=== PATIENT | female | born 1990 | race Hispanic/Latino ===

== ENCOUNTER 2018-04-01 18:54 | Emergency (ER) | payer BC, OTHER | END 2018-04-01 19:29 | disposition home or self-care (01) | LOC: EDH 18:54 | DX: H60.91 Unspecified otitis externa, right ear (principal); Z88.1 Allergy status to other antibiotic agents; Z87.891 Personal history of nicotine dependence | CPT/HCPCS: 99281 ==

== ENCOUNTER 2019-07-02 08:36 | Emergency (ER) | payer OTHER ==
[2019-07-02] MEDS ORDERED: ONDANSETRON HCL 4 MG/2 ML VIAL ONE (09:19)
[2019-07-02] MEDS ORDERED: KETOROLAC TROMETHAMINE 30MG/ML ONE (09:19)
[2019-07-02] MEDS ORDERED: SODIUM CHLORIDE 0.9% 1000ML 1,000 ML IV ONE (09:20)
[2019-07-02 09:37] LABS: BASOPHILS % (AUTO) 0.4 % (0.0-5.0); EOSINOPHILS % (AUTO) 0.5 % (0.0-8.0); LYMPHOCYTES % (AUTO) 11.3 % (21.0-51.0); MEAN CORPUSCULAR HGB CONC 34.8 g/dL (32.0-36.0); MEAN CORPUSCULAR VOLUME 86.3 fL (79-99); MONOCYTES % (AUTO) 6.7 % (3.0-13.0); NEUTROPHILS % (AUTO) 81.1 % (40.0-77.0); PLATELET COUNT (AUTO) 312 K/uL (130-400); RED BLOOD CELL COUNT(AUTO) 4.99 MIL/uL (4.00-5.50); RED CELL DISTRIBUTION WIDTH 13.3 % (11.0-15.5); WHITE BLOOD COUNT (AUTO) 9.5 K/uL (4.8-10.8)
[2019-07-02 09:45] LABS: CREATININE 0.8 mg/dL (0.5-1.5); POTASSIUM 3.8 mmol/L (3.5-5.1)
[2019-07-02 09:50] LABS: ALBUMIN 3.9 g/dL (3.5-5.0); BILIRUBIN,DIRECT 0.1 mg/dL (0.0-0.3); BILIRUBIN,TOTAL 0.5 mg/dL (0.2-1.0); TOTAL PROTEIN, SERUM 8.5 g/dL (6.0-8.3)
[2019-07-02 10:28] LABS: APPEARANCE,URINE Cloudy (CLEAR); BILIRUBIN,URINE Negative (NEGATIVE); COLOR,URINE Yellow (YELLOW); GLUCOSE, URINE (UA) Negative (NEGATIVE); KETONES,URINE Negative (NEGATIVE); LEUKOCYTE ESTERASE ,URINE Small (NEGATIVE); NITRATE,URINE Negative (NEGATIVE); OCCULT BLOOD,URINE Negative (NEGATIVE); PROTEIN,URINE Negative (NEGATIVE); UROBILINOGEN,URINE 0.2 mg/dL (0.2-1.0)
[2019-07-02 10:29] LABS: HCG,QUAL RESULT NEGATIVE (NEGATIVE)
[2019-07-02 10:31] LABS: BACTERIA,URINE Rare /HPF (None Seen); RBC,URINE 0-1 /HPF (0-1); SQUAMOUS EPITHELIAL CELL,UR Few /HPF (0-2); WBC,URINE 0-1 /HPF (0-1)
[2019-07-02 10:36] LABS: AMPHET/METH SCREEN,URINE NEGATIVE (NEGATIVE); BARBITURATE SCREEN, URINE NEGATIVE (NEGATIVE); BENZODIAZEPINES SCREEN,URINE NEGATIVE (NEGATIVE); CANNABINOID SCREEN,URINE NEGATIVE (NEGATIVE); COCAINE SCREEN,URINE NEGATIVE (NEGATIVE); OPIATE SCREEN,URINE NEGATIVE (NEGATIVE); PHENCYCLIDINE SCREEN,URINE NEGATIVE (NEGATIVE)
== END 2019-07-02 11:56 | disposition home or self-care (01) ==
LOC: EDH 08:36
DX: K52.9 Noninfective gastroenteritis and colitis, unspecified (principal); Z88.8 Allergy status to other drugs, medicaments and biological substances; Z87.891 Personal history of nicotine dependence
CPT/HCPCS: 36415; 74021; 80048; 80076; 80305; 81001; 81025; 83690; 85025; 96361; 96374; 96375; 99285; J1885; J2405; J7030

== ENCOUNTER 2019-08-30 16:50 | Emergency (ER) | payer OTHER ==
[2019-08-30 17:12] LABS: APPEARANCE,URINE Cloudy (CLEAR); BILIRUBIN,URINE Negative (NEGATIVE); COLOR,URINE Yellow (YELLOW); GLUCOSE, URINE (UA) Negative (NEGATIVE); KETONES,URINE Negative (NEGATIVE); LEUKOCYTE ESTERASE ,URINE Negative (NEGATIVE); NITRATE,URINE Negative (NEGATIVE); OCCULT BLOOD,URINE Negative (NEGATIVE); PROTEIN,URINE Negative (NEGATIVE); UROBILINOGEN,URINE 0.2 mg/dL (0.2-1.0)
[2019-08-30 17:21] LABS: BACTERIA,URINE Rare /HPF (None Seen); HCG,QUAL RESULT NEGATIVE (NEGATIVE); RBC,URINE 0-1 /HPF (0-1); WBC,URINE 0-1 /HPF (0-1)
[2019-08-30 17:22] LABS: SQUAMOUS EPITHELIAL CELL,UR Moderate /HPF (0-2)
[2019-08-30 17:33] LABS: CARBON DIOXIDE 24 mmol/L (21-32); CHLORIDE 104 mmol/L (101-111); CREATININE 0.8 mg/dL (0.5-1.5); GLOMERULAR FILTR. RATE CALC 89 mL/min (>60); GLUCOSE,RANDOM 104 mg/dL (70-105); POTASSIUM 4.2 mmol/L (3.5-5.1); SODIUM SERUM 139 mmol/L (136-145); UREA NITROGEN, BLOOD 13 mg/dL (7-18)
[2019-08-30 17:38] LABS: ALANINE AMINOTRANSFERASE 63 U/L (12-78); ALBUMIN 3.5 g/dL (3.5-5.0); ALCOHOL, BLOOD < 3 mg/dL (0-10); ASPARTATE AMINOTRANSFERASE 28 U/L (10-37); BILIRUBIN,TOTAL 0.2 mg/dL (0.2-1.0); LIPASE 130 U/L (114-286); TOTAL PROTEIN, SERUM 8.2 g/dL (6.0-8.3)
[2019-08-30 17:49] LABS: AMPHET/METH SCREEN,URINE NEGATIVE (NEGATIVE); BARBITURATE SCREEN, URINE NEGATIVE (NEGATIVE); BENZODIAZEPINES SCREEN,URINE NEGATIVE (NEGATIVE); CANNABINOID SCREEN,URINE NEGATIVE (NEGATIVE); COCAINE SCREEN,URINE NEGATIVE (NEGATIVE); OPIATE SCREEN,URINE NEGATIVE (NEGATIVE); PHENCYCLIDINE SCREEN,URINE NEGATIVE (NEGATIVE)
[2019-08-30 18:40] LABS: BASOPHILS % (AUTO) 1.2 % (0.0-5.0); EOSINOPHILS % (AUTO) 2.1 % (0.0-8.0); HEMATOCRIT 42.6 % (36-48); LYMPHOCYTES % (AUTO) 31.5 % (21.0-51.0); MEAN CORPUSCULAR HEMOGLOBIN 29.3 pg (27.0-33.0); MEAN CORPUSCULAR HGB CONC 33.7 g/dL (32.0-36.0); MONOCYTES % (AUTO) 7.7 % (3.0-13.0); NEUTROPHILS % (AUTO) 57.5 % (40.0-77.0); PLATELET COUNT (AUTO) 349 K/uL (130-400); RED BLOOD CELL COUNT(AUTO) 4.89 MIL/uL (4.00-5.50); RED CELL DISTRIBUTION WIDTH 13.6 % (11.0-15.5); WHITE BLOOD COUNT (AUTO) 9.7 K/uL (4.8-10.8)
[2019-08-30] MEDS ORDERED: KETOROLAC TROMETHAMINE 30MG/ML ONE (19:01)
== END 2019-08-30 19:19 | disposition home or self-care (01) ==
LOC: EDH 16:50
DX: S39.012A Strain of muscle, fascia and tendon of lower back, initial encounter (principal); Z90.49 Acquired absence of other specified parts of digestive tract; Z72.0 Tobacco use; Z88.8 Allergy status to other drugs, medicaments and biological substances; X58.XXXA Exposure to other specified factors, initial encounter; Y93.89 Activity, other specified; Y92.89 Other specified places as the place of occurrence of the external cause; Y99.8 Other external cause status
CPT/HCPCS: 36415; 74176; 80053; 80305; 81001; 81025; 83690; 85025; 96374; 99285; G0480; J1885

== ENCOUNTER 2020-02-13 23:00 | Emergency (ER) | payer OTHER ==
[2020-02-13] MEDS ORDERED: ONDANSETRON ODT 4 MG TAB ONE (23:25)
[2020-02-13 23:39] LABS: BILIRUBIN,URINE Negative (NEGATIVE); COLOR,URINE Yellow (YELLOW); GLUCOSE, URINE (UA) Negative (NEGATIVE); KETONES,URINE Negative (NEGATIVE); LEUKOCYTE ESTERASE ,URINE Small (NEGATIVE); NITRATE,URINE Negative (NEGATIVE); OCCULT BLOOD,URINE Negative (NEGATIVE); PROTEIN,URINE Negative (NEGATIVE); UROBILINOGEN,URINE 0.2 mg/dL (0.2-1.0)
[2020-02-13 23:40] LABS: APPEARANCE,URINE SLIGHTLY CLOUDY (CLEAR)
[2020-02-13 23:42] LABS: HCG,QUAL RESULT NEGATIVE (NEGATIVE)
[2020-02-13 23:50] LABS: BACTERIA,URINE Few /HPF (None Seen)
[2020-02-13 23:51] LABS: MUCUS,URINE Few LPF (None Seen)
[2020-02-13] MEDS ORDERED: FAMOTIDINE 20MG TAB 20 MG TAB ONE (23:51)
== END 2020-02-14 00:26 | disposition home or self-care (01) ==
LOC: EDH 23:00
DX: R10.13 Epigastric pain (principal); R11.0 Nausea; Z88.8 Allergy status to other drugs, medicaments and biological substances; Z90.49 Acquired absence of other specified parts of digestive tract
CPT/HCPCS: 81001; 81025; 87088

== ENCOUNTER 2020-11-22 16:07 | Emergency (ER) | payer OTHER ==
[2020-11-22 16:33] LABS: APPEARANCE,URINE Turbid (CLEAR); BILIRUBIN,URINE Negative (NEGATIVE); COLOR,URINE Yellow (YELLOW); GLUCOSE, URINE (UA) Negative (NEGATIVE); KETONES,URINE Trace mg/dL (NEGATIVE); LEUKOCYTE ESTERASE ,URINE Large (NEGATIVE); NITRATE,URINE Negative (NEGATIVE); OCCULT BLOOD,URINE Large (NEGATIVE); PH,URINE 5.5 (5.0-8.0); PROTEIN,URINE POS 2+ mg/dL (NEGATIVE); UROBILINOGEN,URINE 0.2 mg/dL (0.2-1.0)
[2020-11-22] MEDS ORDERED: CEFTRIAXONE SODIUM 1 GM ONE (16:55)
[2020-11-22] MEDS ORDERED: LIDOCAINE HCL-MPF 1% 2ML VIAL ONE (16:55)
[2020-11-22 16:58] LABS: BACTERIA,URINE Moderate /HPF (None Seen); MUCUS,URINE Few LPF (None Seen); SQUAMOUS EPITHELIAL CELL,UR Few /HPF (0-2); WBC,URINE 26-50 /HPF (0-1)
[2020-11-22] MEDS ORDERED: PHENAZOPYRIDINE HCL 200 MG TABLET ONE (17:01)
== END 2020-11-22 19:09 | disposition home or self-care (01) ==
LOC: EDH 16:07
DX: N39.0 Urinary tract infection, site not specified (principal); Z90.49 Acquired absence of other specified parts of digestive tract; Z87.891 Personal history of nicotine dependence; Z79.899 Other long term (current) drug therapy
CPT/HCPCS: 81001; 82948; 87077; 87088; 87186; 96372; 99283; J0696; J3490

== ENCOUNTER 2022-02-14 11:01 | Emergency (ER) | payer OTHER ==
[~2022-02-14] VITALS: Ht 162.6 cm; Wt 108.9 kg
[2022-02-14] MEDS ORDERED: ONDANSETRON 4MG INJ IVP ONE (11:30)
[2022-02-14] MEDS ORDERED: PANTOPRAZOLE 40 MG/VIAL IVP ONE (11:30)
[2022-02-14 12:01] LABS: BASOPHILS % (AUTO) 0.2 % (0.0-5.0); EOSINOPHILS % (AUTO) 0.2 % (0.0-8.0); HEMATOCRIT 45.1 % (36-48); LYMPHOCYTES % (AUTO) 20.5 % (21.0-51.0); MEAN CORPUSCULAR HEMOGLOBIN 28.8 pg (27.0-33.0); MEAN CORPUSCULAR HGB CONC 33.5 g/dL (32.0-36.0); MEAN CORPUSCULAR VOLUME 86.1 fL (79-99); MONOCYTES % (AUTO) 7.7 % (3.0-13.0); NEUTROPHILS % (AUTO) 71.1 % (40.0-77.0); PLATELET COUNT (AUTO) 304 K/uL (130-400); RED BLOOD CELL COUNT(AUTO) 5.24 MIL/uL (4.00-5.50); RED CELL DISTRIBUTION WIDTH 13.3 % (11.0-15.5); WHITE BLOOD COUNT (AUTO) 5.9 K/uL (4.8-10.8)
[2022-02-14 12:13] LABS: CREATININE 0.7 mg/dL (0.5-1.5); POTASSIUM 3.4 mmol/L (3.5-5.1)
[2022-02-14 12:18] LABS: ALBUMIN 3.8 g/dL (3.5-5.0); BILIRUBIN,TOTAL 0.4 mg/dL (0.2-1.0); TOTAL PROTEIN, SERUM 8.4 g/dL (6.0-8.3)
[2022-02-14 12:22] LABS: INFLUENZA TYPE A NEGATIVE FOR TYPE A (NEG); INFLUENZA TYPE B NEGATIVE FOR TYPE B (NEG)
[2022-02-14] MEDS ORDERED: 0.9%NACL 1000ML 1,000 ML IV ONE (13:00)
[2022-02-14] MEDS ORDERED: POTASSIUM BICARB/CIT AC 25 MEQ TABLET.EFF PO ONE (13:00)
[2022-02-14 13:22] VITALS: BP 112/78
[2022-02-14 13:27] LABS: APPEARANCE,URINE Turbid (CLEAR); BILIRUBIN,URINE Negative (NEGATIVE); COLOR,URINE Dark Yellow (YELLOW); GLUCOSE, URINE (UA) Negative (NEGATIVE); KETONES,URINE 40 mg/dL (NEGATIVE); LEUKOCYTE ESTERASE ,URINE Small (NEGATIVE); NITRATE,URINE Negative (NEGATIVE); OCCULT BLOOD,URINE Negative (NEGATIVE); PROTEIN,URINE Trace mg/dL (NEGATIVE)
[2022-02-14 13:30] LABS: HCG,QUAL RESULT NEGATIVE (NEGATIVE)
[2022-02-14 13:36] LABS: AMPHET/METH SCREEN,URINE NEGATIVE (NEGATIVE); BARBITURATE SCREEN, URINE NEGATIVE (NEGATIVE); BENZODIAZEPINES SCREEN,URINE NEGATIVE (NEGATIVE); CANNABINOID SCREEN,URINE POSITIVE (NEGATIVE); COCAINE SCREEN,URINE NEGATIVE (NEGATIVE); OPIATE SCREEN,URINE NEGATIVE (NEGATIVE); PHENCYCLIDINE SCREEN,URINE NEGATIVE (NEGATIVE)
[2022-02-14 13:39] LABS: BACTERIA,URINE Few /HPF (None Seen); MUCUS,URINE Moderate LPF (None Seen); RBC,URINE None Seen /HPF (0-1)
[2022-02-14] MEDS ORDERED: FAMO20TA8 PO (13:52)
== END 2022-02-14 14:14 | disposition home or self-care (01) ==
LOC: EDH 11:01
DX: A08.4 Viral intestinal infection, unspecified (principal); E87.6 Hypokalemia; F12.10 Cannabis abuse, uncomplicated; Z20.822 Contact with and (suspected) exposure to COVID-19; Z88.8 Allergy status to other drugs, medicaments and biological substances; Z90.49 Acquired absence of other specified parts of digestive tract
CPT/HCPCS: 36415; 80053; 80305; 81001; 81025; 85025; 87507; 87635; 87804 ×2; 96361; 96374; 96375; 99284; C9113; C9803; J2405; J7030

== ENCOUNTER 2024-02-05 15:10 | Emergency (ER) | payer OTHER ==
[~2024-02-05] VITALS: Ht 162.6 cm; Wt 108.9 kg
[~2024-02-05 15:10] MED LIST: FAMO20TA8 PO
[2024-02-05 15:49] LABS: HCG,QUALITATIVE URINE NEGATIVE (NEGATIVE)
[2024-02-05 15:59] LABS: APPEARANCE,URINE CLOUDY (CLEAR); BILIRUBIN,URINE 0.5 mg/dL (NEGATIVE); COLOR,URINE DARK-BROWN (YELLOW); GLUCOSE, URINE (UA) NEGATIVE (NEGATIVE); KETONES,URINE NEGATIVE (NEGATIVE); LEUKOCYTE ESTERASE ,URINE 500 Leu/uL (NEGATIVE); NITRATE,URINE 1+ (NEGATIVE); OCCULT BLOOD,URINE MODERATE (NEGATIVE); PH,URINE 5.5 (5.0-8.0); PROTEIN,URINE 30 mg/dL (NEGATIVE); UROBILINOGEN,URINE 3 mg/dL (0.2-1.0)
[2024-02-05 16:00] LABS: RBC,URINE 51-100 /HPF (0-1); RED BLOOD CELL CLUMP None Seen /HPF; WBC CLUMP None Seen /HPF (0-1); WBC,URINE 26-50 /HPF (0-1)
[2024-02-05 16:01] LABS: BACTERIA,URINE Few /HPF (None Seen)
[2024-02-05 16:02] LABS: BASOPHILS # (AUTO) 0.04 K/uL (0.00-0.20); BASOPHILS % (AUTO) 0.4 % (0.0-5.0); EOSINOPHILS # (AUTO) 0.06 K/uL (0.00-0.70); EOSINOPHILS % (AUTO) 0.5 % (0.0-8.0); HEMATOCRIT 41.6 % (36-48); IMMATURE GRANULOCYTE ABSOLUTE 0.03 K/uL (0-1); MEAN CORPUSCULAR HEMOGLOBIN 28.4 pg (27.0-33.0); MEAN CORPUSCULAR HGB CONC 33.4 g/dL (32.0-36.0); MEAN CORPUSCULAR VOLUME 84.9 fL (79-99); MONOCYTES # (AUTO) 0.7 K/uL (0.1-1.0); MONOCYTES % (AUTO) 5.9 % (3.0-13.0); NEUTROPHILS # (AUTO) 8.4 K/uL (1.8-7.7); NEUTROPHILS % (AUTO) 74.9 % (40.0-77.0); PLATELET COUNT (AUTO) 363 K/uL (130-400); RED CELL DISTRIBUTION WIDTH 13.8 % (11.0-15.5); WHITE BLOOD COUNT (AUTO) 11.2 K/uL (4.8-10.8)
[2024-02-05] MEDS: ONDANSETRON 4MG INJ IVP ONE (16:03)
[2024-02-05] MEDS: FAMOTIDINE 20MG VIAL IV ONE (16:03)
[2024-02-05 16:14] LABS: CREATININE 0.7 mg/dL (0.5-1.0); POTASSIUM 3.6 mmol/L (3.5-5.1)
[2024-02-05 16:18] LABS: ALBUMIN 3.4 g/dL (3.5-5.0); BILIRUBIN,TOTAL 0.2 mg/dL (0.2-1.0); TOTAL PROTEIN, SERUM 7.8 g/dL (6.0-8.3)
[2024-02-05] MEDS: KETOROLAC 30MG VIAL (30MG/ML) IVP ONE (17:00)
[2024-02-05] MEDS: CEFTRIAXONE 1G VIAL IVPB ONE (17:00)
[2024-02-05] MEDS ORDERED: IBUP-2071 PO (17:42)
[2024-02-05 18:09] VITALS: BP 130/69; PULSE 89; RESP 20; O2SAT 99
[2024-02-05] MEDS ORDERED: ONDA4TAB10 PO (18:19)
== END 2024-02-05 18:23 | disposition home or self-care (01) ==
LOC: EDH 15:10
DX: N39.0 Urinary tract infection, site not specified (principal); R31.9 Hematuria, unspecified; R10.2 Pelvic and perineal pain; F17.200 Nicotine dependence, unspecified, uncomplicated; Z90.49 Acquired absence of other specified parts of digestive tract
CPT/HCPCS: 99285; 74176; 96365; 96375; 80053; 85025; 87088; 81001 ×2; 81025; 36415; J3490; J0696; J2405; J1885

== ENCOUNTER 2025-07-27 16:55 | Emergency (ER) | payer OTHER ==
[~2025-07-27] VITALS: Ht 162.6 cm; Wt 108.9 kg
[~2025-07-27 16:55] MED LIST changes: +IBUP-2071 PO; +ONDA-243 PO
--- NOTE | 2025-07-27 17:06 | NUR ---
PER CT, PT IS GOOD TO GO TO CT SCAN FOR THE STROKE ALERT.
[2025-07-27 17:17] LABS: IMMATURE GRANULOCYTE ABSOLUTE 0.03 K/uL (0-1); NUCLEATED RED BLOOD CELLS 0.0 % (0.0-0.19); PLATELET COUNT (AUTO) 343 K/uL (130-400); RED BLOOD CELL COUNT(AUTO) 4.93 MIL/uL (4.00-5.50); RED CELL DISTRIBUTION WIDTH 13.3 % (11.0-15.5); WHITE BLOOD COUNT (AUTO) 9.0 K/uL (4.8-10.8)
--- NOTE | 2025-07-27 17:22 | EKG ---
[facility] Test Date: 2025-07-27 Test Time: 17:15:32 Pat Name: DANIEL SPENCER Department: ED Room: Gender: F Cover Stripper: 08 : 1990 Requested By: REMBERTO CARDOSO Order Number: [id number] Reading MD: Suha Argueta Measurements Intervals [place] Rate: 82 P: 34 OK: 148 QRS: 82 QRSD: 84 T: 18 QT: 377 QTc: 442 Interpretive Statements Sinus rhythm Compared to ECG 04/26/2018 13:03:09 Sinus tachycardia no longer present Left posterior fascicular block no longer present Electronically Signed On 07-28-2025 16:35:32 CDT by Suha Argueta Please click the below link to view image of tracing.
[2025-07-27 17:25] LABS: CREATININE 0.6 mg/dL (0.5-1.0); GLOMERULAR FILTR. RATE CALC 118.0 mL/min (>90); GLUCOSE,RANDOM 96.0 mg/dL (70-105); SODIUM SERUM 140.0 mmol/L (136-145); UREA NITROGEN, BLOOD 13.0 mg/dL (7-18)
--- NOTE | 2025-07-27 17:28 | HMCIMG ---
EXAM: CT SCAN OF THE BRAIN WITHOUT CONTRAST Technique: Axial non-contrast computed tomography images of the head were acquired with coronal and sagittal reformations. Radiation dose reduction strategies consistent with the ???as low as reasonably achievable??? principle were applied, including automatic exposure control and size-based tube current and tube voltage modulation with iterative reconstruction. Clinical Information: Numbness. Comparison: None. Technical Limitations: Study quality is adequate without motion or streak artifact. Findings: The visualized brain parenchyma shows normal appearance. No focal parenchymal abnormalities are demonstrated. Mar???white matter differentiation is maintained. The midline structures are not deviated. The ventricular system is normal in size and shape. The brainstem and the cerebellum are unremarkable. The cerebellopontine angles are clear. The internal auditory canals are unremarkable. The pituitary gland, the pineal gland, and the optic chiasm are unremarkable. The osseous structures of the skull base are unremarkable. The osseous structures of the calvarium show normal density. The visualized intraorbital contents show no definite abnormality. The paranasal sinuses are normal. Impression: No acute intracranial abnormality identified on non-contrast computed tomography of the brain. /Chris
[2025-07-27] MEDS ORDERED: VALA100031 PO (17:50)
[2025-07-27] MEDS ORDERED: PRED20TA3 PO (17:50)
[2025-07-27] MEDS ORDERED: CIPR7.5D7 OTIC (17:50)
--- NOTE | 2025-07-27 17:50 | ERN ---
ED Note History of Present Illness Stated Complaint: NUMBNESS TO RIGHT FACE Chief Complaint: Numbness Time Seen by MD: 17:03 Time Seen by Midlevel: 17:03 Dictation: The patient is a 35-year-old female with history of cholecystectomy who presents to the emergency department with complaints of right facial weakness onset 4:00 p.m. after she woke up from a nap. Patient reports going to sleep at 2:00 p.m.. Patient reports that she has been dealing with a right ear infection in his taking ear drops for it for the past three days. Patient otherwise denies any head trauma, denies any fevers, denies numbness to extremities, denies any visual changes. Allergies: Coded Allergies: promethazine (Unverified Allergy, Unknown, 07/02/19) Home Meds Active Scripts Prednisone (Prednisone) 20 Mg Tablet, 60 MG PO DAILY for 7 Days, #21 TAB Prov:WILLIAM MARTE QUALITY CHECKER 07/27/25 Ciprofloxacin HCl/Dexameth (Ciproflox-Dexameth Otic Susp) 0.3 %-0.1 % Drops.susp, 4 DROP OTIC BID for 7 Days, #7.5 ML 0 Refills Prov:WILLIAM MARTE QUALITY CHECKER 07/27/25 Valacyclovir HCl (Valacyclovir) 1,000 Mg Tablet, 1 TAB PO TID for 7 Days, #21 TAB 0 Refills Prov:WILLIAM MARTE QUALITY CHECKER 07/27/25 Ondansetron (Ondansetron Odt) 4 Mg Tab.rapdis, 4 MG PO Q6HPRN PRN for nausea, #16 TAB 0 Refills Prov:PATRICIO MARTE MD 02/05/24 Ibuprofen (Ibuprofen) 800 Mg Tablet, 800 MG PO Q8H PRN for PAIN, #30 TAB 0 Refills Prov:PATRICIO MARTE MD 02/05/24 Famotidine (Famotidine) 20 Mg Tablet, 20 MG PO BID for 30 Days, #60 TAB Prov:GALILEA BAUER MD 02/14/22 Past Medical History Past Medical History: No Pertinent History Surgical History: Cholecystectomy Social History: Smokers RN Note Reviewed/Agreed w/PFSH: Yes Review of System Dictation Constitutional: Negative for fever,chills, and weight loss Eyes: Negative for injury, pain,redness, and discharge ENT: Negative for injury,pain or swelling Cardiovascular: Negative for chest pain, palpitations, and edema Respiratory: Negative for shortness of breath, cough, and wheezing, Abdomen/GI: Negative for abdominal pain, nausea, vomiting, diarrhea, and constipation Back: Negative for injury and pain : Negative for injury, bleeding and discharge MS/Extremity: Negative for injury and deformity Skin: Negative for rash, and discoloration Neuro: Negative for headache, , tingling, and seizure positive for right facial weakness Psych: Negative for suicide ideation, homicidal ideation, and hallucinations Initial Vital Sign VS Vital Signs Date Time Temp Pulse Resp B/P (MAP) Pulse Ox O2 Delivery O2 Flow Rate FiO2 07/27/25 16:55 98.1 90 16 125/82 97 Room Air 07/27/25 17:22 0 21 Physical Exam Dictation Vital Signs reviewed General Appearance: Alert, oriented x 3, no acute distress, well developed, nourished. Head and Face: non-traumatic. Eyes: PERRL, pink conjunctivas, eyelid no trauma, anterior chamber with arcus s enilis. Ears: Pinnas intact and no signs of trauma or erythema ear canals clear and no discharge TM no erythema Nose: No discharge, no bleeding. Oropharynx: Mouth normal, tongue pink. pharynx clear,no erythema, tonsils no exudates, no abscesses noted, mucous membrane moist Neck: Supple, non-tender, no thyromegaly, no masses, no JVD, no bruits Breast:Deferred Chest:No tenderness, no crepitus, no paradoxical movement, no retractions Lungs:Clear, well-ventilated, symmetric, no rales, no wheezing, no rhonchi, no stridor, good breath sounds bilaterally Heart: Regular rate, regular rhythm, no murmur, no gallops Vascular: no peripheral edema, Abdomen: Soft, positive bowel sounds, nondistended, no guarding, nontender, no rebound, no masses no hepatomegaly, no splenomegaly, no Billings's sign, no hernias. Rectal: Deferred Genital: Deferred Neurological: Normal speech, motor function intact, sensory function intact , paralysis to right side of face, upper extremities equal in strength, lower extremities equal in strength Musculoskeletal: Neck nontender, full range of motion, back nontender, full range of motion, Extremities: nontender, full range of motion Skin: Color pink, dry, no turgor, no rash, no lacerations, no abrasions, no contusions. Lymphatic: Deferred Results (Laboratory/Radiology) Laboratory/Radiology Laboratory Tests Test 07/27/25 17:10 White Blood Count 9.0 K/uL (4.8-10.8) Red Blood Count 4.93 MIL/uL (4.00-5.50) Hemoglobin 14.2 g/dL (12.0-16.0) Hematocrit 42.3 % (36-48) Mean Corpuscular Volume 85.8 fL (79-99) Mean Corpuscular Hemoglobin 28.8 pg (27.0-33.0) Mean Corpuscular Hemoglobin Concent 33.6 g/dL (32.0-36.0) Red Cell Distribution Width 13.3 % (11.0-15.5) Platelet Count 343 K/uL (130-400) Mean Platelet Volume 9.3 fL (7.5-10.5) Immature Granulocyte % (Auto) 0.3 % (0-1) Neutrophils (%) (Auto) 58.1 % (40.0-77.0) Lymphocytes (%) (Auto) 31.1 % (21.0-51.0) Monocytes (%) (Auto) 7.7 % (3.0-13.0) Eosinophils (%) (Auto) 2.5 % (0.0-8.0) Basophils (%) (Auto) 0.3 % (0.0-5.0) Neutrophils # (Auto) 5.2 K/uL (1.8-7.7) Lymphocytes # (Auto) 2.8 K/uL (1.0-4.8) Monocytes # (Auto) 0.7 K/uL (0.1-1.0) Eosinophils # (Auto) 0.22 K/uL (0.00-0.70) Basophils # (Auto) 0.03 K/uL (0.00-0.20) Absolute Immature Granulocyte (auto 0.03 K/uL (0-1) Nucleated Red Blood Cells 0.0 % (0.0-0.19) Sodium Level 140 mmol/L (136-145) Potassium Level 3.9 mmol/L (3.5-5.1) Chloride Level 104 mmol/L (101-111) Carbon Dioxide Level 27 mmol/L (21-32) Blood Urea Nitrogen 13 mg/dL (7-18) Creatinine 0.6 mg/dL (0.5-1.0) Glomerular Filtration Rate Calc 118 mL/min (>90) Random Glucose 96 mg/dL (70-105) Total Calcium 8.5 mg/dL (8.5-10.1) Troponin I High Sensitivity 4 ng/L (4-50) Serum Test, Qualitative NEGATIVE (NEGATIVE) SERVICE 1703 REASON: Numbness ORDERING PHYSICIAN: REMBERTO CARDOSO MD PROCEDURE: HEAD WO - CT HEAD/BRAIN W/O CONTRAST EXAM: CT SCAN OF THE BRAIN WITHOUT CONTRAST Technique: Axial non-contrast computed tomography images of the head were acquired with coronal and sagittal reformations. Radiation dose reduction strategies consistent with the ???as low as reasonably achievable??? principle were applied, including automatic exposure control and size-based tube current and tube voltage modulation with iterative reconstruction. Clinical Information: Numbness. Comparison: None. Technical Limitations: Study quality is adequate without motion or streak artifact. Findings: The visualized brain parenchyma shows normal appearance. No focal parenchymal abnormalities are demonstrated. Mar???white matter differentiation is maintained. The midline structures are not deviated. The ventricular system is normal in size and shape. The brainstem and the cerebellum are unremarkable. The cerebellopontine angles are clear. The internal auditory canals are unremarkable. The pituitary gland, the pineal gland, and the optic chiasm are unremarkable. The osseous structures of the skull base are unremarkable. The osseous structures of the calvarium show normal density. The visualized intraorbital contents show no definite abnormality. The paranasal sinuses are normal. Impression: No acute intracranial abnormality identified on non-contrast computed tomography of the brain. /[facility] Reviewed?: Yes EKG: (+) rhythm (Sinus rhythm) EKG Comment: Date:07/27/2025 Time:1714 Ventricular rate:82 [place] interval:148 QRS duration:84 QT/QTc:377/442 EKG interpretation: Sinus rhythm Reviewed by ED Attending no STEMI ED Course ED Course Orders Procedure Category Date Status Time 12 Lead Ekg Tracing- EKG 07/27/25 Complete Technical 17:03 Cbc With Differential LAB 07/27/25 Complete 17:03 Basic Metabolic Panel LAB 07/27/25 Complete 17:03 Troponin I High LAB 07/27/25 Complete Sensitivity 17:03 Ct Head/Brain W/O CT 07/27/25 Resulted Contrast 17:03 Testing, LAB 07/27/25 Complete Serum Hcg 17:31 Valacyclovir Hcl PHA 07/27/25 Complete (Valtrex) 18:00 Dexamethasone 4mg/Ml PHA 07/27/25 Complete 1ml Vial (Dexametha 18:00 Ceftriaxone 1g Vial PHA 07/27/25 Complete (Rocephine 1g Inj) 18:00 Current Medications Medications (Trade) Dose Ordered Sig/Soraya Route PRN Reason Start Time Stop Time Status Last Admin Dose Admin Ceftriaxone Sodium (ROCEphine 1G INJ) 1 gm ONCE ONCE IVPB 07/27/25 18:00 07/27/25 18:01 DC Dexamethasone Sodium Phosphate (dexaMETHasone 4MG/ML 1ML VIAL) 6 mg ONCE ONCE IVP 07/27/25 18:00 07/27/25 18:01 DC Valacyclovir HCl (ValtREX) 1,000 mg ONCE ONCE PO 07/27/25 18:00 07/27/25 18:01 DC Vital Signs Date Time Temp Pulse Resp B/P (MAP) Pulse Ox O2 Delivery O2 Flow Rate FiO2 07/27/25 18:18 98.2 88 16 118/77 98 Room Air* 0 21 07/27/25 17:22 98.2 90 16 115/77 98 Room Air* 0 21 07/27/25 16:55 98.1 90 16 125/82 97 Room Air Medical Decision Making MDM The patient is a 35-year-old female with history of cholecystectomy who presents to the emergency department with complaints of right facial weakness onset 4:00 p.m. after she woke up from a nap. Patient reports going to sleep at 2:00 p.m.. Patient reports that she has been dealing with a right ear infection in his taking ear drops for it for the past three days. Patient otherwise denies any head trauma, denies any fevers, denies numbness to extremities, denies any visual changes. CBC showed no leukocytosis, no anemia, chemistry showed no electrolyte imbalance, negative troponin, normal renal function. CT head showed no acute pathology. On physical exam patient has classic symptoms of Olivo's palsy. Patient also reports that she has no taste on the right side of her tongue. Patient is able to close her right eye, there is weakness on the upper and lower portions of the face. Patient otherwise has no numbness to extremities, there is no weakness to her extremities. Patient we will be treated for Olivo's palsy instructed to follow up with PCP neurology. Differential diagnosis: CVA, Olivo's palsy, anxiety, electrolyte imbalance Need for hospitalization: Patient does not meet criteria for hospitalization. There are no social concerns with this patient. NIH STROKE SCALE: NIH STROKE SCALE Response (Comments) Value Level of Consciousness Alert 0 Ask patient month and their age Answers both correct 0 Command to open eyes, make fist and let go Obeys both correct 0 Visual Field Testing No Visual Field Loss 0 Facial Paresis Minor Paralysis 1 Motor Function - Left Arm Normal 0 Motor Function - Right Arm Normal 0 Motor Function - Left Leg Normal 0 Motor Function - Right Leg Normal 0 Limb Ataxia No Ataxia 0 Sensory-pin prick to arms, legs, trunk and face Mild to Moderate Decrease 1 Best Language (describe picture, name items and read) No Aphasia 0 Dysarthria (read several words) Normal Articulation 0 Extinction and Inattention Normal 0 Total DX & DISP Disposition: Discharge Departure Impression: Primary Impression: Olivo's palsy Condition: Stable Scripts Amoxicillin/Potassium Clav (Amox Tr-K Clv 875-125 mg Tab) 875 Mg-125 Mg Tablet 1 TAB PO BID for 7 Days, #14 TAB 0 Refills Prov: WILLIAM MARTE QUALITY CHECKER 07/27/25 Prednisone (Prednisone) 20 Mg Tablet 60 MG PO DAILY for 7 Days, #21 TAB Prov: WILLIAM MARTE QUALITY CHECKER 07/27/25 Ciprofloxacin HCl/Dexameth (Ciproflox-Dexameth Otic Susp) 0.3 %-0.1 % Drops.susp 4 DROP OTIC BID for 7 Days, #7.5 ML 0 Refills Prov: WILLIAM MARTE QUALITY CHECKER 07/27/25 Valacyclovir HCl (Valacyclovir) 1,000 Mg Tablet 1 TAB PO TID for 7 Days, #21 TAB 0 Refills Prov: WILLIAM MARTE QUALITY CHECKER 07/27/25 Additional Instructions: Your labs were unremarkable. Your symptoms are consistent with Olivo's palsy patient is a reaction to a viral infection that this weakness to part of your face. We will be treated with antiviral medication and steroids. Please take your medications as prescribed. Follow up with your primary doctor in 1-2 days. If anything worsens please return to ER. FOLLOW-UP WITH PRIMARY CARE PROVIDER IN 1 TO 2 DAYS. TAKE MEDICATIONS DIRECTED HERE IN THE EMERGENCY ROOM. OKAY TO CONTINUE HOME MEDICATIONS UNLESS OTHERWISE DISCUSSED DURING YOUR VISIT IN THE EMERGENCY ROOM TODAY. RETURN TO YOUR NEAREST EMERGENCY ROOM IF SYMPTOMS WORSEN OR IF THERE IS NO IMPROVEMENT. CALL 911 IF YOU NEED IMMEDIATE ASSISTANCE. TAKE TYLENOL [id number] NEEDED AND IF NO CONTRAINDICATIONS ARE PRESENT. INCREASE ORAL HYDRATION. A WOUND CULTURE OR URINE CULTURE WAS ORDERED HERE IN THE EMERGENCY ROOM DEPARTMENT PLEASE FOLLOW-UP WITH PRIMARY CARE PROVIDER AND ADVISE THEM TO GET REPEAT PORTS FROM OUR FACILITY. IF YOU HAD ANY SANDEE WRAP/SPLINTS THAT WERE APPLIED HERE, PLEASE DO NOT REMOVE THEM UNTIL YOU SEE YOUR PRIMARY CARE OR SPECIALTY. Referrals: LISA REAL MD (PCP) JEANA SUAREZ MD Time of Disposition: 18:04 I have examined patient, & reviewed all documents, & agreed W/ the Diagnosis, and Plan WILLIAM MARTE [facility] Jul 27, 2025 17:50
[2025-07-27 18:18] VITALS: BP 118/77; PULSE 88; RESP 16; TEMP 98.3; O2SAT 98
[2025-07-27] MEDS ORDERED: AMOX1TAB16 PO (18:30)
== END 2025-07-27 18:33 | disposition home or self-care (01) ==
LOC: EDH 16:55
DX: G51.0 Bell's palsy (principal); F17.200 Nicotine dependence, unspecified, uncomplicated; Z88.8 Allergy status to other drugs, medicaments and biological substances; Z79.52 Long term (current) use of systemic steroids; Z79.624 Long term (current) use of inhibitors of nucleotide synthesis; Z90.49 Acquired absence of other specified parts of digestive tract
CPT/HCPCS: 36415; 70450; 80048; 84484; 84703; 85025; 93005; 99284

== ENCOUNTER 2025-08-25 00:24 | Emergency (ER) | payer OTHER ==
[~2025-08-25] VITALS: Ht 162.6 cm; Wt 108.9 kg
[~2025-08-25 00:24] MED LIST changes: +AMOX1TAB16 PO; +CIPR7.5D7 OTIC; +PRED20TA3 PO; +VALA100031 PO
--- NOTE | 2025-08-25 00:29 | NUR ---
UA CUP PROVIDED
[2025-08-25] MEDS: 0.9%NACL 1000ML 1,000 ML IV ONE (00:59)
[2025-08-25 01:05] LABS: IMMATURE GRANULOCYTE ABSOLUTE 0.05 K/uL (0-1); NUCLEATED RED BLOOD CELLS 0.0 % (0.0-0.19); PLATELET COUNT (AUTO) 375 K/uL (130-400); RED BLOOD CELL COUNT(AUTO) 4.81 MIL/uL (4.00-5.50); RED CELL DISTRIBUTION WIDTH 13.9 % (11.0-15.5); WHITE BLOOD COUNT (AUTO) 10.2 K/uL (4.8-10.8)
[2025-08-25 01:12] VITALS: TEMP 99.3
[2025-08-25 01:14] LABS: CREATININE 0.9 mg/dL (0.5-1.0); GLOMERULAR FILTR. RATE CALC 84 mL/min (>90); GLUCOSE,RANDOM 125 mg/dL (70-105); SODIUM SERUM 137 mmol/L (136-145); UREA NITROGEN, BLOOD 14 mg/dL (7-18)
[2025-08-25 01:18] LABS: ASPARTATE AMINOTRANSFERASE 15 U/L (10-37); TOTAL PROTEIN, SERUM 7.6 g/dL (6.0-8.3)
--- NOTE | 2025-08-25 01:28 | ERN ---
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 Patient reports that she was at a friend's giving and had some turkey which thinks caused her symptoms because three other friends have the same symptoms. Patient denies any fevers. Allergies: Coded Allergies: promethazine (Unverified Allergy, Unknown, 07/02/19) Home Meds Active Scripts Amoxicillin/Potassium Clav (Amox Tr-K Clv 875-125 mg Tab) 875 Mg-125 Mg Tablet, 1 TAB PO BID for 7 Days, #14 TAB 0 Refills Prov:WILLIAM MARTE [employer] 07/27/25 Prednisone (Prednisone) 20 Mg Tablet, 60 MG PO DAILY for 7 Days, #21 TAB Prov:WILLIAM MARTE [employer] 07/27/25 Ciprofloxacin HCl/Dexameth (Ciproflox-Dexameth Otic Susp) 0.3 %-0.1 % Drops.susp, 4 DROP OTIC BID for 7 Days, #7.5 ML 0 Refills Prov:WILLIAM MARTEP 07/27/25 Valacyclovir HCl (Valacyclovir) 1,000 Mg Tablet, 1 TAB PO TID for 7 Days, #21 TAB 0 Refills Prov:WILLIAM MARTE 07/27/25 Ondansetron (Ondansetron Odt) 4 Mg Tab.rapdis, 4 MG PO Q6HPRN PRN for nausea, #16 TAB 0 Refills Prov:PATRICIO MARTE MD 02/05/24 Ibuprofen (Ibuprofen) 800 Mg Tablet, 800 MG PO Q8H PRN for PAIN, #30 TAB 0 Refills Prov:PATRICIO MARTE MD 02/05/24 Famotidine (Famotidine) 20 Mg Tablet, 20 MG PO BID for 30 Days, #60 TAB Prov:GALILEA BAUER MD 02/14/22 Past Medical History Past Medical History: Other Additional Past Medical Hx: BELS PALSY Surgical History: Cholecystectomy Social History: Smokers RN Note Reviewed/Agreed w/PFSH: Yes Review of System Dictation Constitutional: Negative for fever,chills, and weight loss Eyes: Negative for injury, pain,redness, and discharge ENT: Negative for injury,pain or swelling Cardiovascular: Negative for chest pain, palpitations, and edema Respiratory: Negative for shortness of breath, cough, and wheezing, Abdomen/GI: Negative for constipation positive for abdominal pain, nausea, vomiting, diarrhea Back: Negative for injury and pain : Negative for injury, bleeding and discharge MS/Extremity: Negative for injury and deformity Skin: Negative for rash, and discoloration Neuro: Negative for headache, weakness, numbness, tingling, and seizure Psych: Negative for suicide ideation, homicidal ideation, and hallucinations Initial Vital Sign VS Vital Signs Date Time Temp Pulse Resp B/P (MAP) Pulse Ox O2 Delivery O2 Flow Rate FiO2 08/25/25 00:25 96.6 127 20 145/82 98 Room Air 08/25/25 01:12 0 21 Physical Exam Dictation Vital Signs reviewed General Appearance: Alert, oriented x 3, no acute distress, well developed, nourished. Head and Face: non-traumatic. Eyes: PERRL, pink conjunctivas, eyelid no trauma, anterior chamber with arcus senilis. Ears: Pinnas intact and no signs of trauma or erythema ear canals clear and no discharge TM no erythema Nose: No discharge, no bleeding. Oropharynx: Mouth normal, tongue pink. pharynx clear,no erythema, tonsils no exudates, no abscesses noted, mucous membrane moist Neck: Supple, non-tender, no thyromegaly, no masses, no JVD, no bruits Breast:Deferred Chest:No tenderness, no crepitus, no paradoxical movement, no retractions Lungs:Clear, well-ventilated, symmetric, no rales, no wheezing, no rhonchi, no stridor, good breath sounds bilaterally Heart: Regular rate, regular rhythm, no murmur, no gallops Vascular: no peripheral edema, Abdomen: Soft, positive bowel sounds, nondistended, no guarding, nontender, no rebound, no masses no hepatomegaly, no splenomegaly, no Billings's sign, no hernias. Rectal: Deferred Genital: Deferred Neurological: Normal speech, motor function intact, sensory function intact Musculoskeletal: Neck nontender, full range of motion, back nontender, full range of motion, Extremities: nontender, full range of motion Skin: Color pink, dry, no turgor, no rash, no lacerations, no abrasions, no contusions. Lymphatic: Deferred Results (Laboratory/Radiology) Laboratory/Radiology Laboratory Tests Test 08/25/25 00:44 08/25/25 01:34 White Blood Count 10.2 K/uL (4.8-10.8) Red Blood Count 4.81 MIL/uL (4.00-5.50) Hemoglobin 14.0 g/dL (12.0-16.0) Hematocrit 41.9 % (36-48) Mean Corpuscular Volume 87.1 fL (79-99) Mean Corpuscular Hemoglobin 29.1 pg (27.0-33.0) Mean Corpuscular Hemoglobin Concent 33.4 g/dL (32.0-36.0) Red Cell Distribution Width 13.9 % (11.0-15.5) Platelet Count 375 K/uL (130-400) Mean Platelet Volume 9.3 fL (7.5-10.5) Immature Granulocyte % (Auto) 0.5 % (0-1) Neutrophils (%) (Auto) 55.7 % (40.0-77.0) Lymphocytes (%) (Auto) 33.5 % (21.0-51.0) Monocytes (%) (Auto) 8.1 % (3.0-13.0) Eosinophils (%) (Auto) 1.9 % (0.0-8.0) Basophils (%) (Auto) 0.3 % (0.0-5.0) Neutrophils # (Auto) 5.7 K/uL (1.8-7.7) Lymphocytes # (Auto) 3.4 K/uL (1.0-4.8) Monocytes # (Auto) 0.8 K/uL (0.1-1.0) Eosinophils # (Auto) 0.19 K/uL (0.00-0.70) Basophils # (Auto) 0.03 K/uL (0.00-0.20) Absolute Immature Granulocyte (auto 0.05 K/uL (0-1) Nucleated Red Blood Cells 0.0 % (0.0-0.19) Sodium Level 137 mmol/L (136-145) Potassium Level 3.6 mmol/L (3.5-5.1) Chloride Level 102 mmol/L (101-111) Carbon Dioxide Level 25 mmol/L (21-32) Blood Urea Nitrogen 14 mg/dL (7-18) Creatinine 0.9 mg/dL (0.5-1.0) Glomerular Filtration Rate Calc 84 mL/min (>90) Random Glucose 125 mg/dL (70-105) H Total Calcium 9.0 mg/dL (8.5-10.1) Total Bilirubin 0.1 mg/dL (0.2-1.0) L Direct Bilirubin < 0.1 mg/dL (0.0-0.3) Aspartate Amino Transf (AST/SGOT) 15 U/L (10-37) Alanine Aminotransferase (ALT/SGPT) 31 U/L (12-78) Alkaline Phosphatase 85 U/L (50-136) Total Protein 7.6 g/dL (6.0-8.3) Albumin 3.2 g/dL (3.5-5.0) L Lipase 38 U/L (16-77) Urine Color COLORLESS (YELLOW) Urine Appearance CLEAR (CLEAR) Urine pH 5.5 (5.0-8.0) Urine Specific [place] 1.009 (1.001-1.031) Urine Protein NEGATIVE mg/dL (NEGATIVE) Urine Glucose (UA) NEGATIVE mg/dL (NEGATIVE) Urine Ketones NEGATIVE mg/dL (NEGATIVE) Urine Occult Blood NEGATIVE (NEGATIVE) Urine Nitrate NEGATIVE (NEGATIVE) Urine Bilirubin NEGATIVE mg/dL (NEGATIVE) Urine Urobilinogen 0.2 mg/dL (0.2-1.0) Urine Leukocyte Esterase NEGATIVE [place] Martin/uL Urine HCG, Qualitative NEGATIVE (NEGATIVE) Urine Opiates Screen NEGATIVE (NEGATIVE) Urine Barbiturates Screen NEGATIVE (NEGATIVE) Urine Phencyclidine Screen NEGATIVE (NEGATIVE) Urine Amphetamines Screen NEGATIVE (NEGATIVE) Urine Benzodiazepines Screen NEGATIVE (NEGATIVE) Urine Cocaine Screen NEGATIVE (NEGATIVE) Urine Marijuana (THC) Screen NEGATIVE (NEGATIVE) Labs Reviewed?: Yes ED Course ED Course Orders Procedure Category Date Status Time Cbc With Differential LAB 08/25/25 Complete 00:27 Basic Metabolic Panel LAB 08/25/25 Complete 00:27 Hepatic Function Panel LAB 08/25/25 Complete 00:27 ,Urine Test LAB 08/25/25 Complete 00:35 Drug Screen Urine LAB 08/25/25 Complete 00:35 Urinalysis Profile LAB 08/25/25 Complete 00:35 0.9%Nacl 1000ml (Ns PHA 08/25/25 Complete 1000ml) 01:00 Ondansetron 4mg Inj PHA 08/25/25 Complete (Zofran 4mg Inj) 01:00 Pantoprazole 40mg Inj PHA 08/25/25 Complete (Protonix 40mg Inj 01:00 Lipase LAB 08/25/25 Complete 00:44 Current Medications Medications (Trade) Dose Ordered Sig/Soraya Route PRN Reason Start Time Stop Time Status Last Admin Dose Admin Ondansetron HCl (zoFRAN 4MG INJ) 4 mg ONCE ONCE IVP 08/25/25 01:00 08/25/25 01:01 DC 08/25/25 00:59 Pantoprazole Sodium (PROTonix 40MG INJ) 40 mg ONCE ONCE IVP 08/25/25 01:00 08/25/25 01:01 DC 08/25/25 00:59 Sodium Chloride 1,000 ml @ 0 mls/hr ONCE ONCE IV 08/25/25 01:00 08/25/25 01:01 DC 08/25/25 00:59 Vital Signs Date Time Temp Pulse Resp B/P (MAP) Pulse Ox O2 Delivery O2 Flow Rate FiO2 08/25/25 02:20 87 18 106/69 98 Room Air* 0 21 08/25/25 01:12 99.3 95 16 125/75 98 Room Air* 0 21 08/25/25 00:25 96.6 127 20 145/82 98 Room Air Medical Decision Making MDM The patient is a 35-year-old female with history of cholecystectomy, 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 Patient reports that she was at a friend's giving and had some turkey which thinks caused her symptoms because three other friends have the same symptoms. Patient denies any fevers. CBC showed no leukocytosis, no anemia chemistry showed no electrolyte imbalance, urinalysis unremarkable. On physical exam patient is in no acute distress, nontoxic appearance. Abdomen soft and nontender. Patient reports feeling better. Tachycardia improved. Patient's friends with similar symptoms. Symptoms consistent with a gastroenteritis. Patient will be discharged to follow up with PCP. Differential diagnosis: Gastroenteritis, gastritis, dehydration Need for hospitalization: Patient does not meet criteria for hospitalization. There are no social concerns with this patient. DX & DISP Disposition: Discharge Departure Impression: Primary Impression: Viral gastroenteritis Condition: Stable Scripts Dicyclomine HCl (Bentyl) 20 Mg Tab 1 TAB PO BID for irritable bowel symptoms for 10 Days, #60 TAB 0 Refills Prov: WILLIAM MARTE SIMONA 08/25/25 Pantoprazole Sodium (Protonix) 20 Mg Tablet.dr 1 TAB PO DAILY for 10 Days, #30 TAB 0 Refills Prov: KIMBERLY MARTEBETH JARVIS 08/25/25 Ondansetron (Ondansetron Odt) 4 Mg Tab.rapdis 4 MG PO Q6HPRN PRN for nausea, #16 TAB 0 Refills Prov: ROSANNAWILLIAM JARVIS 08/25/25 Additional Instructions: Your labs were unremarkable. Please take your medications as prescribed. Continue oral hydration at home. Avoid any foods that exacerbate your symptoms. You can start a brat diet which includes a bland foods like bananas rice emir lesauce and toast, follow up With your primary doctor in 1-2 days. If anything worsens please return to ER. FOLLOW-UP WITH PRIMARY CARE PROVIDER IN 1 TO 2 DAYS. TAKE MEDICATIONS DIRECTED HERE IN THE EMERGENCY ROOM. OKAY TO CONTINUE HOME MEDICATIONS UNLESS OTHERWISE DISCUSSED DURING YOUR VISIT IN THE EMERGENCY ROOM TODAY. RETURN TO YOUR NEAREST EMERGENCY ROOM IF SYMPTOMS WORSEN OR IF THERE IS NO IMPROVEMENT. CALL 911 IF YOU NEED IMMEDIATE ASSISTANCE. TAKE TYLENOL [id number] NEEDED AND IF NO CONTRAINDICATIONS ARE PRESENT. INCREASE ORAL HYDRATION. A WOUND CULTURE OR URINE CULTURE WAS ORDERED HERE IN THE EMERGENCY ROOM DEPARTMENT PLEASE FOLLOW-UP WITH PRIMARY CARE PROVIDER AND ADVISE THEM TO GET REPEAT PORTS FROM OUR FACILITY. IF YOU HAD ANY SANDEE WRAP/SPLINTS THAT WERE APPLIED HERE, PLEASE DO NOT REMOVE THEM UNTIL YOU SEE YOUR PRIMARY CARE OR SPECIALTY. Referrals: LA BASILIO MD (PCP) Time of Disposition: 02:30 I have reviewed the case, and I agree with, Diagnosis and Plan WILLIAM MARTE SIMONA Aug 25, 2025 01:28
[2025-08-25 02:17] LABS: APPEARANCE,URINE CLEAR (CLEAR); GLUCOSE, URINE (UA) NEGATIVE (NEGATIVE); LEUKOCYTE ESTERASE ,URINE NEGATIVE Leu/uL (NEGATIVE); NITRATE,URINE NEGATIVE (NEGATIVE); OCCULT BLOOD,URINE NEGATIVE (NEGATIVE)
[2025-08-25 02:20] VITALS: BP 106/69; PULSE 87; RESP 18; O2SAT 98
[2025-08-25 02:24] LABS: AMPHET/METH SCREEN,URINE NEGATIVE (NEGATIVE); BARBITURATE SCREEN, URINE NEGATIVE (NEGATIVE); CANNABINOID SCREEN,URINE NEGATIVE (NEGATIVE); COCAINE SCREEN,URINE NEGATIVE (NEGATIVE)
[2025-08-25 02:25] LABS: ADD UA MICROSCOPIC NO
[2025-08-25 02:28] LABS: HCG,QUALITATIVE URINE NEGATIVE (NEGATIVE)
[2025-08-25] MEDS ORDERED: DICY20TA2 PO (02:32)
[2025-08-25] MEDS ORDERED: PANT20TA PO (02:32)
== END 2025-08-25 02:48 | disposition home or self-care (01) ==
LOC: EDH 00:24
DX: A08.4 Viral intestinal infection, unspecified (principal); R11.2 Nausea with vomiting, unspecified; F17.200 Nicotine dependence, unspecified, uncomplicated; Z90.49 Acquired absence of other specified parts of digestive tract; Z88.8 Allergy status to other drugs, medicaments and biological substances; Z79.52 Long term (current) use of systemic steroids; Z79.624 Long term (current) use of inhibitors of nucleotide synthesis; Z79.899 Other long term (current) drug therapy
CPT/HCPCS: 99284; 96374; 96375; 80076; 80048; 80305; 83690; 85025; 81025; 36415; 81003; J7030; J2405; J2470